=== PATIENT | female | born 1970 | race Caucasian/White ===

== ENCOUNTER 2025-04-27 13:31 | Emergency (ER) | payer OTHER ==
[~2025-04-27] VITALS: Ht 165.1 cm; Wt 91.0 kg
[2025-04-27 13:49] VITALS: O2SAT 99
[2025-04-27] MEDS: KETOROLAC 30MG/ML VIAL IM ONE (16:05)
[2025-04-27] MEDS ORDERED: IBUP-2030 MT (18:08)
[2025-04-27] MEDS ORDERED: CIPHCO EACH EAR (18:08)
[2025-04-27] MEDS ORDERED: AMOX500T2 MT (18:08)
[2025-04-27 18:10] VITALS: BP 148/80; PULSE 77; RESP 18; TEMP 37.2; O2SAT 99
== END 2025-04-27 18:17 | disposition home or self-care (01) ==
LOC: ER 13:31
DX: H66.93 Otitis media, unspecified, bilateral (principal); H60.391 Other infective otitis externa, right ear; E78.00 Pure hypercholesterolemia, unspecified; I10 Essential (primary) hypertension
CPT/HCPCS: 99285; 70490; 81025; 96372; J1885